=== PATIENT | male | born 1950 | race Caucasian/White ===

== ENCOUNTER 2017-11-08 09:38 | Emergency (ER) | payer OTHER, MEDICARE, BC ==
[2017-11-08] MEDS ORDERED: Diphtheria,Pertussis(Acell),Tetanus Vaccine 0.5 ML Syringe IM ONE (10:37)
[2017-11-08 10:39] VITALS: BP 129/69
[2017-11-08] MEDS ORDERED: Bacitracin Oint 1 GM U/D Packet TOP ONE (10:40)
[2017-11-08] MEDS ORDERED: Lidocaine 1% 20 ML MDV INJECT ONE (10:40)
--- NOTE | 2017-11-08 12:14 | EDM.PDOC ---
ED HPI GENERAL MEDICAL PROBLEM - General Chief Complaint: Laceration Stated Complaint: CUT TO LEFT HAND WORK RELATED Time Seen by Provider: 11/08/17 10:36 Source of Information: Reports: Patient History Limitations: Reports: No Limitations - History of Present Illness INITIAL COMMENTS - FREE TEXT/NARRATIVE: HISTORY AND PHYSICAL: History of present illness: Patient is a 67-year-old male who presents to the emergency room today with complaints of a laceration to his left index finger. 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 bleeding was controlled with a Band-Aid. He does not remember his last tetanus. Review of systems: As per history of present illness and below otherwise all systems reviewed and negative. Past medical history: As per history of present illness and as reviewed below otherwise noncontributory. Surgical history: As per history of present illness and as reviewed below otherwise noncontributory. Social history: No reported history of drug or alcohol abuse. Family history: As per history of present illness and as reviewed below otherwise noncontributory. Physical exam: General: Well-developed and well-nourished 67-year-old male. Alert and oriented. Nontoxic appearing and in no acute distress. HEENT: Atraumatic, normocephalic, pupils reactive, negative for conjunctival pallor or scleral icterus, mucous membranes moist, throat clear, neck supple, nontender, trachea midline. Lungs: Clear to auscultation, breath sounds equal bilaterally, chest nontender. Heart: S1S2, regular, negative for clicks, rubs, or JVD. Abdomen: Soft, nondistended, nontender. Negative for masses or hepatosplenomegaly. Negative for costovertebral tenderness. Pelvis: Stable nontender. Genitourinary: Deferred. Rectal: Deferred. Extremities/Skin: 2 cm interrupted "C" shape laceration to MIP joint on the dorsal aspect of the left index finger. No tendon involvement. Full ROM. Cap refill less than 3 seconds. Strong radial pulses. Neurovascular unremarkable. Neuro: Awake, alert, oriented. Cranial nerves II through XII unremarkable. Cerebellum unremarkable. Motor and sensory unremarkable throughout. Exam nonfocal. due to the patient's occupational prophylactically place the patient on Keflex. Spoon splint/nonstick dressing was applied. Would like him to keep this clean and dry and use the spoon splint for the next 3-5 days. We did discuss signs and symptoms of infection that would prompt him to come back to the emergency room. Stitches to be removed in 7-10 days. Patient voices understanding and is agreeable to plan of care. He denies any further questions at this time. Diagnostics: [] Therapeutics: Tdap, Lidocaine 1%, Bacitracin ointment, nonstick dressing, spoon splint Impression: Finger Laceration Plan: 1. Please wear the spoon splint for the next 3-5 days to allow the tissue to heal (avoid bending the knuckle during this tiem). Keep the area clean and dry. Monitor for signs of infection as we discussed. An antibiotic has been prescribed prophylacticly, as you use your hands frequently with your occupation. 2. Stitches to be removed in 7-10 days. That can be done through your primary care or ER. 3. Follow up with her primary caregiver as we discussed. Return to the ED as needed and as discussed. Definitive disposition and diagnosis as appropriate pending reevaluation and review of above. Onset: Today Duration: Hour(s): Location: Reports: Upper Extremity, Left - Related Data Allergies Allergy/AdvReac Type Severity Reaction Status Date / Time Tapes adhesives Allergy Redness Uncoded 05/26/16 16:00 Home Meds: Home Meds Exenatide Microspheres [Bydureon Pen] 1 injection SQ WEEKLY 05/26/16 [History] Insulin Detemir [Levemir Flextouch] 50 unit SQ BID 05/26/16 [History] Losartan Potassium [Cozaar] 1 tab PO ACBREAKFAST 05/26/16 [History] atorvaSTATin Calcium [Atorvastatin Calcium] 1 tab PO DAILY 05/26/16 [History] metFORMIN HCl [Metformin HCl ER] 3 tab PO ACDINNER 05/26/16 [History] Past Medical History Cardiovascular History: Reports: High Cholesterol, Hypertension Respiratory History: Reports: Sleep Apnea Other Respiratory History: Sleep apnea, have machine 'but do not use it'. 37 yr history of smoking, QUIT 8 years ago, night before kidney surgery Other Genitourinary History: Left Partial Nephrectomy for Cancer '2007 Musculoskeletal History: Reports: Fracture Other Musculoskeletal History: hx: fracture to Right foot, Back pain when standing long time "not chronic" Endocrine/Metabolic History: Reports: Diabetes, Type II, Obesity/BMI 30+ Oncologic (Cancer) History: Reports: Renal Dermatologic History: Reports: Other (See Below) Other Dermatologic History: SKin sensitive to tape adhesives - Past Surgical History Male Surgical History: Reports: Nephrectomy Other Male Surgeries/Procedures: Partial Nephrectomy for Cancer on Left '2007 Musculoskeletal Surgical History: Reports: Knee Replacement Social & Family History - Tobacco Use Smoking Status *Q: Former Smoker Years of Tobacco use: 37 Used Tobacco, but Quit: No Month Tobacco Last Used: 2007 - Caffeine Use Caffeine Use: Reports: Coffee - Recreational Drug Use Recreational Drug Use: No Drug Use in Last 12 Months: No ED ROS GENERAL - Review of Systems Review Of Systems: ROS reveals no pertinent complaints other than HPI. ED EXAM, SKIN/RASH Exam: See Below (see dictation) ED SKIN PROCEDURES - Laceration/Wound Repair Left index finger Lac/Wound length In cm: 2 Appearance: Linear, Clean Anesthetic Type: Local Local Anesthesia - Lidocaine (Xylocaine): 1% Plain Local Anesthetic Volume: 3cc Skin Prep: Chlorhexidine (Hibiciens), Saline, Sterile Drape Saline Irrigation (cc's): 20 Exploration/Debridement/Repair: Wound Explored, No Foreign Material Found Suture Size: 4-0 # of Sutures: 8 Suture Type: Nylon, Simple Progress/Comments: Non-stick bacitracin dressing, spoon splint applied with education Course - Vital Signs Last Recorded V/S: Last Vital Signs Temp 96.5 F 11/08/17 10:38 Pulse 63 11/08/17 10:38 Resp 18 11/08/17 10:38 BP 129/69 11/08/17 10:38 Pulse Ox 94 L 11/08/17 10:38 - Orders/Labs/Meds Orders: Active Orders 24 hr Category Date Time Status Communication Order [RC] STAT Care 11/08/17 10:40 Active Vaccines to be Administered [RC] PER UNIT ROUTINE Care 11/08/17 10:37 Active Meds: Medications Discontinued Medications Generic Name Dose Route Start Last Admin Trade Name Freq PRN Reason Stop Dose Admin Bacitracin 1 dose 11/08/17 10:40 Bacitracin Oint 1 Gm TOP 11/08/17 10:41 ONETIME ONE Diphtheria/Tetanus/Acell Pertussis 0.5 ml 11/08/17 10:37 Adacel IM 11/08/17 10:38 .ONCE ONE Lidocaine HCl 20 ml 11/08/17 10:40 Xylocaine 1% INJECT 11/08/17 10:41 ONETIME ONE Departure - Departure Time of Disposition: 12:32 Disposition: Home, Self-Care 01 Clinical Impression: Finger laceration Qualifiers: Encounter type: initial encounter Finger: index finger Damage to nail status: without damage Foreign body presence: without foreign body Laterality: left Qualified Code(s): S61.211A - Laceration without foreign body of left index finger without damage to nail, initial encounter - Discharge Information Instructions: Laceration Care, Adult, [id number] Referrals: Freddy Urias MD [Primary Care Provider] - Additional Instructions: My general discharge The following information is given to patients seen in the emergency department who are being discharged to home. This information is to outline your options for follow-up care. We provide all patients seen in our emergency department with a follow-up referral. The need for follow-up, as well as the timing and circumstances, are variable depending upon the specifics of your emergency department visit. If you don't have a primary care physician on staff, we will provide you with a referral. We always advise you to contact your personal physician following an emergency department visit to inform them of the circumstance of the visit and for follow-up with them and/or the need for any referrals to a consulting specialist. The emergency department will also refer you to a specialist when appropriate. This referral assures that you have the opportunity for follow-up care with a specialist. All of these measure are taken in an effort to provide you with optimal care, which includes your follow-up. Under all circumstances we always encourage you to contact your private physician who remains a resource for coordinating your care. When calling for follow-up care, please make the office aware that this follow-up is from your recent emergency room visit. If for any reason you are refused follow-up, please contact the [facility] Emergency Department at and asked to speak to the emergency department charge nurse. [facility] [address] [place] [id number] 1. Please wear the spoon splint for the next 3-5 days to allow the tissue to heal (avoid bending the knuckle during this tiem). Keep the area clean and dry. Monitor for signs of infection as we discussed. An antibiotic has been prescribed prophylacticly, as you use your hands frequently with your occupation. 2. Stitches to be removed in 7-10 days. That can be done through your primary care or ER. 3. Follow up with her primary caregiver as we discussed. Return to the ED as needed and as discussed. - My Orders Last 24 Hours: My Active Orders 11/08/17 10:37 Vaccines to be Administered [RC] PER UNIT ROUTINE 11/08/17 10:40 Communication Order [RC] STAT - Assessment/Plan Last 24 Hours: My Active Orders 11/08/17 10:37 Vaccines to be Administered [RC] PER UNIT ROUTINE 11/08/17 10:40 Communication Order [RC] STAT
== END 2017-11-08 13:02 | disposition home or self-care (01) ==
LOC: MW.ED 09:38
DX: S61.211A Laceration without foreign body of left index finger without damage to nail, initial encounter (principal); Z23 Encounter for immunization; I10 Essential (primary) hypertension; E78.00 Pure hypercholesterolemia, unspecified; E11.9 Type 2 diabetes mellitus without complications; Z87.891 Personal history of nicotine dependence; Z79.4 Long term (current) use of insulin; Z79.899 Other long term (current) drug therapy; Z91.048 Other nonmedicinal substance allergy status; W26.0XXA Contact with knife, initial encounter; Y92.89 Other specified places as the place of occurrence of the external cause; Y99.0 Civilian activity done for income or pay
CPT/HCPCS: 12001; 90471; 90715; 99282-25; 99283

== ENCOUNTER 2017-11-18 15:11 | Emergency (ER) | payer OTHER, MEDICARE, BC ==
[2017-11-18 15:23] VITALS: BP 135/66
== END 2017-11-18 15:23 | disposition left against medical advice (07) ==
LOC: MW.ED 15:11
DX: Z53.21 Procedure and treatment not carried out due to patient leaving prior to being seen by health care provider (principal)

== ENCOUNTER 2019-06-26 09:21 | Day surgery (SDC) | payer MEDICARE, BC ==
[~2019-06-26 09:21] MED LIST: Lactated Ringers 1,000 ML IV SCH; cefOXitin 2 GM in Premix Bag 1 BAG IV ONE
[2019-06-26] MEDS ORDERED: Lidocaine 2% 5 ML SDV ONE (10:06)
[2019-06-26] MEDS ORDERED: Ketamine 500 mg/10 ML MDV ONE (10:06)
[2019-06-26] MEDS ORDERED: Propofol 200 MG/20 ML SDV ONE ×4 (10:07→11:29)
--- NOTE | 2019-06-26 10:08 | PCM.PREANE ---
Preanesthetic Assessment - Anesthesia/Transfusion/Family Hx Anesthesia History: Prior Anesthesia Without Reaction Other Type of Anesthesia Reaction Comment: Denies any known problem in past Family History of Anesthesia Reaction: No Transfusion History: No Prior Transfusion(s) - Review of Systems General: No Symptoms Pulmonary: No Symptoms Cardiovascular: No Symptoms Gastrointestinal: No Symptoms Neurological: No Symptoms Other: Reports: None - Physical Assessment NPO Status Date: 06/26/19 NPO Status Time: 06:00 Vital Signs: Last Vital Signs Temp 97.2 F 06/26/19 09:47 Pulse 55 L 06/26/19 09:47 Resp 18 06/26/19 09:47 BP 127/69 06/26/19 09:47 Pulse Ox 95 06/26/19 09:47 Height: 5 ft 9 in Weight: 133.356 kg ASA Class: 3 Mental Status: Alert & Oriented x3 Airway Class: Mallampati = 2 Dentition: Reports: Normal Dentition ROM/Head Extension: Full Lungs: Clear to Auscultation, Normal Respiratory Effort Cardiovascular: Regular Rate, Regular Rhythm - Allergies Allergies/Adverse Reactions: Allergies Allergy/AdvReac Type Severity Reaction Status Date / Time Tapes adhesives Allergy Redness Uncoded 06/20/19 16:36 - Blood Blood Available: No - Anesthesia Plan Pre-Op Medication Ordered: None - Acknowledgements Anesthesia Type Planned: General Anesthesia Pt an Appropriate Candidate for the Planned Anesthesia: Yes Alternatives and Risks of Anesthesia Discussed w Pt/Guardian: Yes Pt/Guardian Understands and Agrees with Anesthesia Plan: Yes Additional Comments: PMH: MO. DM@ on insulin, took usual dose of am insulin this am, an sugar was 160 , HTN, ERLIN- iuses CPAP 7 hours/night PLAN: tiva with airway support if needed. PreAnesthesia Questionnaire HEENT History: Reports: Cataract, Other (See Below) Other HEENT History: wears glasses Cardiovascular History: Reports: High Cholesterol Other Cardiovascular History: takes Losartan because of metformin Respiratory History: Reports: Sleep Apnea, Other (See Below) Other Respiratory History: uses CPAP- feels he has chronic bronchitis- doesn't cough much but has "aching" in "bronchial tubes" Gastrointestinal History: Reports: Colon Polyp Genitourinary History: Reports: Renal Disease Other Genitourinary History: Left Partial Nephrectomy for Cancer Musculoskeletal History: Reports: Fracture Other Musculoskeletal History: hx of fx foot as a teenager Endocrine/Metabolic History: Reports: Diabetes, Type II, IDDM Oncologic (Cancer) History: Reports: Renal Dermatologic History: Reports: Other (See Below) Other Dermatologic History: SKin sensitive to tape adhesives - Past Surgical History Head Surgeries/Procedures: Reports: None GI Surgical History: Reports: Colonoscopy Male Surgical History: Reports: Nephrectomy Other Male Surgeries/Procedures: hx of partial Nephrectomy for kidney cancer Musculoskeletal Surgical History: Reports: Knee Replacement Other Musculoskeletal Surgeries/Procedures:: bilateral TKA - SUBSTANCE USE Smoking Status *Q: Former Smoker Tobacco Use Within Last Twelve Months: No Recreational Drug Use History: No - HOME MEDS Home Medications: Home Meds Insulin Detemir [Levemir Flextouch] 50 unit SQ BEDTIME 05/26/16 [History] Losartan Potassium [Cozaar] 25 mg PO ACBREAKFAST 05/26/16 [History] atorvaSTATin Calcium [Atorvastatin Calcium] 20 mg PO DAILY 05/26/16 [History] metFORMIN HCl [Metformin HCl ER] 1,500 mg PO ACDINNER 05/26/16 [History] Insulin Detemir [Levemir Flextouch] 42 units SQ QAM 06/20/19 [History] Semaglutide [Ozempic] 0.25 - 0.5 mg SQ WEEKLY 06/20/19 [History] - CURRENT (IN HOUSE) MEDS Current Meds: Current Medications Lactated Ringer's (Ringers, Lactated) 1,000 mls @ 125 mls/hr IV ASD[facility]RECTED [facility] Last Admin: 06/26/19 09:40 Dose: 125 mls/hr Discontinued Medications Cefoxitin Sodium 2 gm/ Premix 50 mls @ 100 mls/hr IV ONETIME ONE Stop: 06/26/19 08:29 Last Admin: 06/26/19 10:06 Dose: 100 mls/hr
--- NOTE | 2019-06-26 11:52 | PCM.OPNOTE ---
- General Post-Op/Procedure Note Date of Surgery/Procedure: 06/26/19 Operative Procedure(s): Colonoscopy with cold cecal, ascending colon, transverse colon and sigmoid polypectomies. Pre Op Diagnosis: History of colon polyps. Post-Op Diagnosis: Cecal, ascending colon, transverse colon and sigmoid polyps. Internal hemorrhoids. Anesthesia Technique: MAC (ASA III) Primary Surgeon: Miguel Lea Condition: Good Free Text/Narrative:: DICTATION [id number] CPT CODE [id number]
[2019-06-26] MEDS ORDERED: Lactated Ringers 1,000 ML IV SCH (12:00)
[2019-06-26 12:39] VITALS: BP 128/58; PULSE 56
--- NOTE | 2019-06-26 13:48 | PCM.POSTAN ---
POST ANESTHESIA ASSESSMENT - MENTAL STATUS Mental Status: Alert, Oriented - VITAL SIGNS Vital Signs: Last Vital Signs Temp 96.6 F 06/26/19 12:33 Pulse 56 L 06/26/19 12:33 Resp 18 06/26/19 12:33 BP 128/58 L 06/26/19 12:33 Pulse Ox 91 L 06/26/19 12:33 - RESPIRATORY Respiratory Status: Respiratory Rate WNL, Airway Patent, O2 Saturation Stable - CARDIOVASCULAR CV Status: Pulse Rate WNL, Blood Pressure Stable - GASTROINTESTINAL GI Status: No Symptoms - POST OP HYDRATION Hydration Status: Adequate & Stable
--- NOTE | 2019-06-26 13:49 | PCM48HPAN ---
Post Anesthesia Note - EVALUATION WITHIN 48HRS OF ANESTHETIC Vital Signs in Normal Range: Yes Patient Participated in Evaluation: Yes Respiratory Function Stable: Yes Airway Patent: Yes Cardiovascular Function Stable: Yes Hydration Status Stable: Yes Pain Control Satisfactory: Yes Nausea and Vomiting Control Satisfactory: Yes Mental Status Recovered: Yes Vital Signs: Last Vital Signs Temp 96.6 F 06/26/19 12:33 Pulse 56 L 06/26/19 12:33 Resp 18 06/26/19 12:33 BP 128/58 L 06/26/19 12:33 Pulse Ox 91 L 06/26/19 12:33
--- NOTE | 2019-06-26 14:57 | OR ---
SURGEON: Miguel Lea M.D. DATE OF PROCEDURE: 06/26/2019 OPERATION PERFORMED: Colonoscopy with cold cecal, ascending colon, transverse colon, and sigmoid polypectomy. PRIMARY SURGEON: Miguel Lea M.D. ANESTHESIA: MAC. ASA CLASSIFICATION: III. PREOPERATIVE DIAGNOSIS: History of colon polyps. POSTOPERATIVE DIAGNOSES: 1. Multiple colon polyps in the cecum, ascending colon, transverse colon, and sigmoid. 2. Internal hemorrhoids. DESCRIPTION OF PROCEDURE: The patient was taken to the endoscopy room, positioned on the endoscopy table in the left lateral decubitus position. Time-out was called for appropriate identification of the patient and procedure. Monitored anesthesia care was provided. The colonoscope was inserted into the rectum and advanced with moderate difficulty to the cecum. The prep was only fair as there was a large amount of thick fecal material present, although I was able to suction most of this out. Once the colonoscope was advanced to the cecum, polyps were encountered in the cecum and ascending colon. These were removed with cold biopsy forceps and sent for separate histologic analysis. The colonoscope was able to be retroflexed in the cecum to visualize the ascending colon from below, then straightened and slowly withdrawn. No tumors or diverticular changes were noted, and there was no evidence of angiodysplasia. Two small polyps were also encountered in the transverse colon and removed with the cold biopsy forceps. The remainder of the transverse colon, splenic flexure, and descending colon showed no tumors, polyps, or diverticula. One small polyp was encountered in the sigmoid colon, likewise removed with the cold biopsy forceps. Once the colonoscope was withdrawn to the rectum, it was retroflexed to visualize the anal orifice from above. The patient does have some internal hemorrhoids with mild bleeding noted. No stricture or spasm was noted. No polyps were encountered in the rectum. The colonoscope was then straightened, the rectum aspirated, and the colonoscope removed. The patient tolerated the procedure well and was taken to recovery room in stable condition. TANGELA PERRIN /[id number]
== END 2019-06-26 13:40 | disposition home or self-care (01) ==
LOC: MW.SDS 09:21
PROVIDERS: ATTEND Surgery
DX: Z12.11 Encounter for screening for malignant neoplasm of colon (principal); D12.2 Benign neoplasm of ascending colon; D12.0 Benign neoplasm of cecum; K63.5 Polyp of colon; K64.8 Other hemorrhoids; E11.9 Type 2 diabetes mellitus without complications; I10 Essential (primary) hypertension; E66.01 Morbid (severe) obesity due to excess calories; Z86.010 Personal history of colon polyps; Z79.4 Long term (current) use of insulin; Z91.048 Other nonmedicinal substance allergy status; Z79.899 Other long term (current) drug therapy; E78.00 Pure hypercholesterolemia, unspecified; Z87.891 Personal history of nicotine dependence; Z68.41 Body mass index [BMI] 40.0-44.9, adult
CPT/HCPCS: 45380; 88305; J0694; J2001; J2704; J7120

== ENCOUNTER 2021-05-11 07:49 | Emergency (ER) | payer MEDICARE, BC ==
[2021-05-11] MEDS: Ketorolac 15 MG/ML SDV IM ONE (08:27)
[2021-05-11] MEDS: predniSONE 20 MG Tab PO ONE (08:28)
--- NOTE | 2021-05-11 08:29 | EDM.PDOC ---
ED HPI GENERAL MEDICAL PROBLEM - General Chief Complaint: Back Pain or Injury Stated Complaint: SIACTICIA ON RIGHT SIDE Time Seen by Provider: 05/11/21 08:06 - History of Present Illness INITIAL COMMENTS - FREE TEXT/NARRATIVE: CHIEF COMPLAINT(S): Sciatica HISTORY OF PRESENT ILLNESS: This is a 70-year-old man with a past medical history of lumbar radiculopathy,, diabetes mellitus, hypertension Who comes to the emergency department with a chief complaint of sciatica. The patient states that he is experiencing pain from his right buttock down to his right leg. He denies any urinary incontinence, bowel incontinence or decreased sensation when wiping after having a bowel movement. He states that he has been going to the chiropractor and it got better but then it seemed to worsen. He states that he was given prednisone. He states that this feels similar to the last time he had sciatica 2 to 3 years ago. He has not had any sleep so he decided to come to the emergency department. He denies any trouble walking, fev er, chills, IV drug use. He denies any back injury. REVIEW OF SYSTEMS: Constitutional: Denies fever, chills. Eyes: Denies eye pain Ears, Nose, Mouth, & Throat: Denies earache Cardiovascular: Denies chest pain Respiratory: Denies shortness of breath Gastrointestinal: Denies Nausea, vomiting, diarrhea, hematochezia. Genitourinary: Denies hematuria Skin:Denies a rash MSK: Positive for right buttock and right leg pain Neurological: Denies blurred vision, numbness, tingling, weakness Psychiatric: Denies depression PAST MEDICAL HISTORY: As per history of present illness and as reviewed below otherwise noncontributory. SURGICAL HISTORY: As per history of present illness and as reviewed below otherwise noncontributory. SOCIAL HISTORY: As per history of present illness and as reviewed below otherwise noncontributory. FAMILY HISTORY: As per history of present illness and as reviewed below otherwise noncontributory. EXAMINATION OF ORGAN SYSTEMS/BODY AREAS: Constitutional: Blood pressure was 126/86, heart rate 58, respiratory rate 18 with an oxygen saturation 95% on room air. Temperature 35.8 temporally General: Overall well-appearing man who is in no acute distress Psychiatric: Appropriate mood and affect. Eyes: No scleral icterus or conjunctival erythema ENMT: Moist mucous membranes. No pharyngeal erythema Cardiovascular: Regular, rate, and rhythm. No gallops, murmurs, or rubs. Bilateral upper extremity pulses symmetric and intact. No peripheral edema. No JVD. Respiratory: Lungs clear to auscultation bilaterally. No wheezes, rales, or rhonchi. Gastrointestinal: Soft, non-tender, non-distended. Normoactive bowel sounds Genitourinary: No suprapubic tenderness Musculoskeletal: Normal range of motion. Negative straight leg test. There is tenderness to palpation along the right buttock. No obvious skin changes. Skin: No lesions or abrasions. Neurological: Alert, GCS 15 strength and sensation grossly intact in upper and lower extremities bilaterally MEDICAL DECISION MAKING AND COURSE IN THE ED WITH INTERPRETATION/REVIEW OF DIAGNOSTIC STUDIES: This is a 70-year-old man with a past medical history of lumbar radiculopathy, diabetes mellitus, hypertension who comes to the emergency department with right buttock pain and a history of lumbar radiculopathy and sciatica who overall appears well and has no red flag symptoms. At this time we will provide the patient with Toradol for pain relief and provide the patient with prednisone by mouth. We will provide the patient with 5-day course of prednisone and encouraged the patient to use naproxen twice a day for anti- inflammatory effect. He is to follow-up with his primary care physician for reevaluation. He was given strict return precautions. The patient was amenable discharge and had no further questions DISPOSITION: The patient was discharged home in stable condition. The patient will follow up with primary care physician in 3 to 5 days CONDITION: Fair PROCEDURES: None FINAL IMPRESSION(S)/DIAGNOSES: 1. Acute right sciatica Sal Burr M.D. Treatments LINEN ROOM SUPERVISOR: Reports: NSAIDS, Other (see below) Other Treatments LINEN ROOM SUPERVISOR: 800 mg of Advil at 0400 this AM sciatic Pain Score (Numeric/FACES): 8 - Related Data Allergies Allergy/AdvReac Type Severity Reaction Status Date / Time Tapes adhesives Allergy Redness Uncoded 05/11/21 08:07 Home Meds: Home Meds Insulin Detemir [Levemir Flextouch] 50 unit SQ BEDTIME 05/26/16 [History] Losartan Potassium [Cozaar] 25 mg PO ACBREAKFAST 05/26/16 [History] atorvaSTATin Calcium [Atorvastatin Calcium] 20 mg PO DAILY 05/26/16 [History] metFORMIN HCl [Metformin HCl ER] 2,000 mg PO ACDINNER 05/26/16 [History] Insulin Detemir [Levemir Flextouch] 42 units SQ QAM 06/20/19 [History] Semaglutide [Ozempic] 0.25 - 0.5 mg SQ WEEKLY 06/20/19 [History] Aspirin [Low Dose Aspirin EC] 81 mg PO DAILY 03/26/20 [History] guaiFENesin [Mucinex] 600 mg PO BID 03/26/20 [History] Naproxen [Naprosyn] 250 mg PO BID #14 tab 05/11/21 [Rx] predniSONE [Prednisone] 50 mg PO DAILY #5 tablet 05/11/21 [Rx] Past Medical History HEENT History: Reports: Impaired Vision Other HEENT History: wears glasses Cardiovascular History: Reports: High Cholesterol Other Cardiovascular History: takes Losartan because of metformin Respiratory History: Reports: Sleep Apnea Other Respiratory History: uses CPAP- feels he has chronic bronchitis- doesn't cough much but has "aching" in "bronchial tubes" Gastrointestinal History: Reports: Colon Polyp Genitourinary History: Reports: Renal Disease Other Genitourinary History: Left Partial Nephrectomy for Cancer Musculoskeletal History: Reports: Fracture, Osteoarthritis Other Musculoskeletal History: hx of fx foot as a teenager Neurological History: Reports: Neuropathy, Diabetic Psychiatric History: Reports: None Endocrine/Metabolic History: Reports: Diabetes, Type II, Obesity/BMI 30+ Hematologic History: Reports: None Immunologic History: Reports: None Oncologic (Cancer) History: Reports: None, Renal Dermatologic History: Reports: Other (See Below) Other Dermatologic History: SKin sensitive to tape adhesives - Infectious Disease History Infectious Disease History: Reports: Chicken Pox, Measles, Mumps - Past Surgical History Head Surgeries/Procedures: Reports: None HEENT Surgical History: Reports: Cataract Surgery, Oral Surgery, Other (See Below) Other HEENT Surgeries/Procedures: eye lid lift sx Cardiovascular Surgical History: Reports: None Respiratory Surgical History: Reports: None GI Surgical History: Reports: Colonoscopy Male Surgical History: Reports: Nephrectomy Other Male Surgeries/Procedures: hx of partial Nephrectomy for kidney cancer Musculoskeletal Surgical History: Reports: Knee Replacement Other Musculoskeletal Surgeries/Procedures:: bilateral TKA Oncologic Surgical History: Reports: Other (See Below) Social & Family History - Family History Family Medical History: No Pertinent Family History - Tobacco Use Tobacco Use Status *Q: Former Tobacco User Used Tobacco, but Quit: Yes Month/Year Tobacco Last Used: 14 years - Caffeine Use Caffeine Use: Reports: Coffee - Recreational Drug Use Recreational Drug Use: No - Living Situation & Occupation Living situation: Reports: , Alone Occupation: Employed (Video Production Specialist) ED ROS GENERAL - Review of Systems Review Of Systems: See Below ED EXAM, GENERAL - Physical Exam Exam: See Below Course - Vital Signs Last Recorded V/S: Last Vital Signs Temp 36.2 C 05/11/21 08:37 Pulse 72 05/11/21 08:37 Resp 18 05/11/21 08:37 BP 141/75 H 05/11/21 08:37 Pulse Ox 91 L 05/11/21 08:37 - Orders/Labs/Meds Meds: Medications Discontinued Medications Generic Name Dose Route Start Last Admin Trade Name Kyra PRN Reason Stop Dose Admin Ketorolac Tromethamine 15 mg 05/11/21 08:24 05/11/21 08:27 Ketorolac 15 Mg/Ml Sdv IM 05/11/21 08:25 15 mg ONETIME ONE Administration Prednisone 60 mg 05/11/21 08:23 05/11/21 08:28 Prednisone 20 Mg Tab PO 05/11/21 08:24 60 mg ONETIME ONE Administration Departure - Departure Time of Disposition: 08:26 Disposition: Home, Self-Care 01 Condition: Fair Clinical Impression: Sciatica - Discharge Information *PRESCRIPTION DRUG MONITORING PROGRAM REVIEWED*: No *COPY OF PRESCRIPTION DRUG MONITORING REPORT IN PATIENT EULALIO: No Prescriptions: Naproxen [Naprosyn] 250 mg PO BID #14 tab predniSONE [Prednisone] 50 mg PO DAILY #5 tablet Instructions: Sciatica, [id number], Muscle Strain, [id number] Referrals: Freddy Urias MD [Primary Care Provider] - Forms: ED Department Discharge Additional Instructions: Your evaluated today on an emergent basis. At this time I do recommend you take prednisone 50 mg daily and naproxen 250 mg twice a day. I would like you to eat with these medications as they can cause ulcers and gastrointestinal issues. I would like you to follow-up with your primary care physician in 1 week for reevaluation and to monitor your kidney function. If you have any symptoms such as fever, worsening back pain, urinating on yourself, defecating on yourself or have any numbness near your rectum I would like you to return to the emergency department. [facility] [address] [place] [address] [facility] [address] [place] [address] The patient is informed of any results of their evaluation and diagnostic workup and all questions are answered. They are given discharge instructions and return precautions. The patient is stable for discharge. The patient states they understand and agree with the plan and that they will return if their symptoms get worse or if they have any new concerns. The following information is given to patients seen in the emergency department who are being discharged to home. This information is to outline your options for follow-up care. We provide all patients seen in our emergency department with a follow-up referral. The need for follow-up, as well as the timing and circumstances, are variable depending upon the specifics of your emergency department visit. If you don't have a primary care physician on staff, we will provide you with a referral. We always advise you to contact your personal physician following an emergency department visit to inform them of the circumstance of the visit and for follow-up with them and/or the need for any referrals to a consulting specialist. The emergency department will also refer you to a specialist when appropriate. This referral assures that you have the opportunity for follow-up care with a specialist. All of these measure are taken in an effort to provide you with optimal care, which includes your follow-up. Under all circumstances we always encourage you to contact your private physician who remains a resource for coordinating your care. When calling for follow-up care, please make the office aware that this follow-up is from your recent emergency room visit. If for any reason you are refused follow-up, please contact the [facility] Emergency Department at and asked to speak to the emergency department charge nurse. Sepsis Event Note (ED) - Evaluation Sepsis Screening Result: No Definite Risk
[2021-05-11 08:38] VITALS: BP 141/75; PULSE 72
== END 2021-05-11 08:38 | disposition home or self-care (01) ==
LOC: MW.ED 07:49
DX: M54.31 Sciatica, right side (principal); E78.00 Pure hypercholesterolemia, unspecified; M19.90 Unspecified osteoarthritis, unspecified site; E11.40 Type 2 diabetes mellitus with diabetic neuropathy, unspecified; E66.9 Obesity, unspecified; Z68.41 Body mass index [BMI] 40.0-44.9, adult; Z87.891 Personal history of nicotine dependence; Z91.048 Other nonmedicinal substance allergy status; Z79.4 Long term (current) use of insulin; Z79.82 Long term (current) use of aspirin; Z79.899 Other long term (current) drug therapy
CPT/HCPCS: 96372; 99283; A9270; J1885

== ENCOUNTER 2022-04-25 17:44 | Emergency (ER) | payer MEDICARE, BC ==
[2022-04-25 18:22] VITALS: BP 140/80; PULSE 92
[2022-04-25 19:48] LABS: CORONAVIRUS COVID-19 NAA NEGATIVE (NEGATIVE); INFLUENZA A NAA NEGATIVE (NEGATIVE); INFLUENZA B NAA NEGATIVE (NEGATIVE)
[2022-04-25] MEDS ORDERED: Ondansetron 4 MG Tab.DIS PO ONE (21:23)
[2022-04-25 22:28] LABS: CARBON DIOXIDE,CO2 29.5 mmol/L (21.0-32.0); POTASSIUM,K 4.6 mmol/L (3.5-5.1)
[2022-04-26] MEDS ORDERED: Amoxicillin 500 MG Cap PO STA (00:07)
== END 2022-04-26 00:27 | disposition home or self-care (01) ==
LOC: MW.ED 17:44
DX: J18.9 Pneumonia, unspecified organism (principal); R11.2 Nausea with vomiting, unspecified; E11.9 Type 2 diabetes mellitus without complications; E66.9 Obesity, unspecified; M19.90 Unspecified osteoarthritis, unspecified site; Z68.41 Body mass index [BMI] 40.0-44.9, adult; Z91.048 Other nonmedicinal substance allergy status; Z79.4 Long term (current) use of insulin; Z79.82 Long term (current) use of aspirin; Z79.899 Other long term (current) drug therapy; Z20.822 Contact with and (suspected) exposure to COVID-19
CPT/HCPCS: 0240U; 36415; 71045; 80053; 83735; 84484; 85025; 93005; 99284; A9270; 93010; 99283

== ENCOUNTER 2022-07-10 07:04 | Day surgery (SDC) | payer MEDICARE, BC ==
[2022-07-10] MEDS ORDERED: Lidocaine 2% 5 ML SDV ONE (07:27)
[2022-07-10] MEDS ORDERED: fentaNYL 100 MCG/2 ML SDV ONE (07:27)
[2022-07-10] MEDS ORDERED: Propofol 200 MG/20 ML SDV ONE ×5 (07:27→09:50)
[2022-07-10] MEDS ORDERED: cefOXitin 100 ML ONE (07:57)
[2022-07-10] MEDS ORDERED: Lactated Ringers 1,000 ML IV SCH (10:15)
[2022-07-10 10:26] VITALS: PULSE 65
[2022-07-10 10:40] VITALS: BP 142/80
== END 2022-07-10 11:15 | disposition home or self-care (01) ==
LOC: MW.SDS 07:04
PROVIDERS: ATTEND Surgery
DX: Z12.11 Encounter for screening for malignant neoplasm of colon (principal); D12.4 Benign neoplasm of descending colon; D12.3 Benign neoplasm of transverse colon; I10 Essential (primary) hypertension; E11.9 Type 2 diabetes mellitus without complications; E66.9 Obesity, unspecified; G47.33 Obstructive sleep apnea (adult) (pediatric); E78.5 Hyperlipidemia, unspecified; K21.9 Gastro-esophageal reflux disease without esophagitis; Z68.41 Body mass index [BMI] 40.0-44.9, adult; Z86.010 Personal history of colon polyps; Z98.890 Other specified postprocedural states; Z96.653 Presence of artificial knee joint, bilateral; Z79.899 Other long term (current) drug therapy; Z79.84 Long term (current) use of oral hypoglycemic drugs; Z87.891 Personal history of nicotine dependence; Z91.048 Other nonmedicinal substance allergy status; Z79.82 Long term (current) use of aspirin
CPT/HCPCS: 45380; 45385; 88305; J0694; J2704; J3010; J7120; 00812; 99100

== ENCOUNTER 2023-11-03 18:28 | Emergency (ER) | payer MEDICARE, BC ==
[2023-11-03] MEDS: Acetaminophen 500 MG Tab PO ONE (18:56)
[2023-11-03 19:32] LABS: CORONAVIRUS COVID-19 NAA POSITIVE (NEGATIVE); INFLUENZA A NAA NEGATIVE (NEGATIVE); INFLUENZA B NAA NEGATIVE (NEGATIVE)
[2023-11-03 19:51] LABS: BASOPHILS ABSOLUTE AUTO 0.03 K/uL (0.00-0.20); BASOPHILS PERCENT AUTO 0.5 % (0.0-1.0); EOSINOPHILS ABSOLUTE AUTO 0.09 K/uL (0.00-0.45); EOSINOPHILS PERCENT AUTO 1.6 % (0.0-6.0); HEMATOCRIT 39.8 % (42.0-52.0); HEMOGLOBIN 13.7 g/dL (14.0-18.0); IMMATURE GRAN ABSOLUTE AUTO 0.02 K/uL (0.00-0.05); IMMATURE GRAN PERCENT AUTO 0.4 % (0.0-0.4); LYMPHOCYTES ABSOLUTE AUTO 1.39 K/uL (1.00-4.80); LYMPHOCYTES PERCENT AUTO 25.2 % (24.0-44.0); MEAN CORPUSCULAR HEMOGLOBIN 29.8 pg (28.0-32.0); MEAN CORPUSCULAR HGB CONC 34.4 g/dL (32.0-36.0); MEAN CORPUSCULAR VOLUME 86.5 fL (83.0-99.0); MEAN PLATELET VOLUME 10.3 fL (9.4-12.4); MONOCYTES ABSOLUTE AUTO 0.93 K/uL (0.00-0.80); MONOCYTES PERCENT AUTO 16.9 % (0.0-8.0); NEUTROPHILS ABSOLUTE AUTO 3.05 K/uL (1.80-7.70); NEUTROPHILS PERCENT AUTO 55.4 % (41.0-71.0); PLATELET COUNT,PLT 149 K/uL (150-400); WHITE BLOOD CELL COUNT,WBC 5.51 K/uL (3.9-11.3)
[2023-11-03 20:13] LABS: A/G RATIO 0.9 (0.9-1.6); ALBUMIN 3.6 g/dL (3.4-5.0); BILIRUBIN TOTAL 0.5 mg/dL (0.2-1.0); CALCIUM 9.2 mg/dL (8.5-10.1); CARBON DIOXIDE,CO2 28.6 mmol/L (21.0-32.0); EST CRCL DRUG DOSING (CG) 64.81 mL/min; POTASSIUM,K 4.1 mmol/L (3.5-5.1); PROTEIN TOTAL,TP 7.6 g/dL (6.4-8.2)
[2023-11-03 21:43] VITALS: BP 117/77; PULSE 81
== END 2023-11-03 21:01 | disposition home or self-care (01) ==
LOC: MW.ED 18:28
DX: U07.1 COVID-19 (principal); K21.9 Gastro-esophageal reflux disease without esophagitis; E78.00 Pure hypercholesterolemia, unspecified; E66.9 Obesity, unspecified; E11.9 Type 2 diabetes mellitus without complications; Z79.82 Long term (current) use of aspirin; Z79.84 Long term (current) use of oral hypoglycemic drugs; Z79.899 Other long term (current) drug therapy; Z91.048 Other nonmedicinal substance allergy status; Z87.891 Personal history of nicotine dependence; Z68.41 Body mass index [BMI] 40.0-44.9, adult
CPT/HCPCS: 0240U; 36415; 71045; 80053; 83605; 85025; 87040; 87651; 99285; A9270; 99283

== ENCOUNTER 2025-06-09 17:58 | Emergency (ER) | payer MEDICARE ==
[2025-06-09 18:59] LABS: BASOPHILS ABSOLUTE AUTO 0.04 K/uL (0.00-0.20); BASOPHILS PERCENT AUTO 0.7 % (0.0-1.0); EOSINOPHILS ABSOLUTE AUTO 0.27 K/uL (0.00-0.45); EOSINOPHILS PERCENT AUTO 4.4 % (0.0-6.0); IMMATURE GRAN ABSOLUTE AUTO 0.04 K/uL (0.00-0.05); IMMATURE GRAN PERCENT AUTO 0.7 % (0.0-0.4); LYMPHOCYTES ABSOLUTE AUTO 1.98 K/uL (1.00-4.80); LYMPHOCYTES PERCENT AUTO 32.4 % (24.0-44.0); MEAN PLATELET VOLUME 10.4 fL (9.4-12.4); MONOCYTES ABSOLUTE AUTO 0.60 K/uL (0.00-0.80); MONOCYTES PERCENT AUTO 9.8 % (0.0-8.0); NEUTROPHILS ABSOLUTE AUTO 3.18 K/uL (1.80-7.70); NEUTROPHILS PERCENT AUTO 52.0 % (41.0-71.0); NRBC ABSOLUTE 0.00 K/uL (0.00-0.02); NRBC PERCENT 0.0 /100WBC (0.0-0.2); PLATELET COUNT,PLT 145 K/uL (150-400); RED BLOOD CELL COUNT 4.80 M/uL (4.52-5.90); WHITE BLOOD CELL COUNT,WBC 6.11 K/uL (3.9-11.3)
[2025-06-09 19:11] VITALS: BP 145/73; PULSE 83
[2025-06-09 19:27] LABS: A/G RATIO 1.1 (0.9-1.6); ALANINE AMINOTRANSFERASE,ALT 47.0 IU/L (14-63); ASPARTATE AMNIOTRANSFERASE,AST 40.0 IU/L (15-37); BILIRUBIN TOTAL 0.7 mg/dL (0.2-1.0); BLOOD UREA NITROGEN,BUN 16.0 mg/dL (7.0-18.0); CARBON DIOXIDE,CO2 29.5 mmol/L (21.0-32.0); CHLORIDE,CL 101.0 mmol/L (98-107); CREATININE 1.3 mg/dL (0.8-1.3); EST CRCL DRUG DOSING (CG) 49.1 mL/min; GLUCOSE RANDOM 174.0 mg/dL (74-106); POTASSIUM,K 4.4 mmol/L (3.5-5.1); PROTEIN TOTAL,TP 7.3 g/dL (6.4-8.2); SODIUM,NA 141.0 mmol/L (136-148)
[2025-06-09 19:36] LABS: ESTIMATED GFR 57.0 mL/min (>60)
[2025-06-09] MEDS: Amoxicillin/Clavulanate K 875-125 MG Tab PO ONE (20:29)
== END 2025-06-09 20:55 | disposition home or self-care (01) ==
LOC: MW.ED 17:58
DX: J44.1 Chronic obstructive pulmonary disease with (acute) exacerbation (principal); E78.00 Pure hypercholesterolemia, unspecified; K21.9 Gastro-esophageal reflux disease without esophagitis; E11.9 Type 2 diabetes mellitus without complications; E66.9 Obesity, unspecified; Z87.891 Personal history of nicotine dependence; Z86.16 Personal history of COVID-19; Z79.4 Long term (current) use of insulin; Z79.82 Long term (current) use of aspirin; Z79.84 Long term (current) use of oral hypoglycemic drugs; Z79.899 Other long term (current) drug therapy; Z75.3 Unavailability and inaccessibility of health-care facilities; Z68.41 Body mass index [BMI] 40.0-44.9, adult
CPT/HCPCS: 36415; 71046; 80053; 85025; 87428; 99283; A9270

== ENCOUNTER 2025-07-02 07:30 | Day surgery (SDC) | payer MEDICARE ==
[2025-07-02] MEDS ORDERED: Propofol 200 MG/20 ML SDV ONE ×3 (07:59→08:57)
[2025-07-02] MEDS: Lactated Ringers 1,000 ML IV SCH (08:02)
[2025-07-02] MEDS ORDERED: Lactated Ringers 1,000 ML IV SCH (09:30)
[2025-07-02 10:16] VITALS: BP 129/63; PULSE 61
== END 2025-07-02 10:40 | disposition home or self-care (01) ==
LOC: MW.SDS 07:30
PROVIDERS: ATTEND Surgery
DX: Z12.11 Encounter for screening for malignant neoplasm of colon (principal); D12.3 Benign neoplasm of transverse colon; D12.4 Benign neoplasm of descending colon; D12.5 Benign neoplasm of sigmoid colon; E66.01 Morbid (severe) obesity due to excess calories; E11.9 Type 2 diabetes mellitus without complications; I10 Essential (primary) hypertension; Z91.09 Other allergy status, other than to drugs and biological substances; Z79.899 Other long term (current) drug therapy; Z79.84 Long term (current) use of oral hypoglycemic drugs; Z68.41 Body mass index [BMI] 40.0-44.9, adult; Z87.891 Personal history of nicotine dependence; Z86.0101 Personal history of adenomatous and serrated colon polyps
CPT/HCPCS: 45380; 88305; J2003; J2704; J7120